=== PATIENT | female | born 1975 | race Caucasian/White ===

== ENCOUNTER → 2016-09-10 | Outpatient (CLI) | payer OTHER ==
--- NOTE | 2016-09-10 16:58 | MA ---
Screening Digital Mammogram With Tomosynthesis Clinical Indications: Routine screening. Sr. With breast cancer at age 24. Aunt with breast cancer at age 40? Technique: Standard digital cephalocaudal and tomosynthesis mediolateral oblique projections were ob tained. An additional digital cc view is performed of the left breast. The digital images were proce ssed by the iCAD computer aided detection system. Comparison: August 2015, August 2014, January 2013 and October 2011 Breast density: D; The breast tissue is extremely dense. This may lower the sensitivity of mammograph y. Findings: CAD was reviewed. No suspicious findings are identified. Impression: Negative mammogram. BI-RADS 1. Recommendation: Routine screening is recommended in one year, as long as physical examination is raghav ign in this patient with moderately dense breast parenchyma. In light of the patient's dense breast p arenchyma and strongly positive family history for breast cancer, she may be good candidate for husam ic counseling. She should also consider using breast MRI or screening whole breast ultrasound) as a complement to annual screening mammography. [facility] will send a result letter to the patient. Negative mammography should not preclude additional workup of a clinically suspicious finding. The patient's information is entered into a reminder system with a target due date for her next mammo gram.
== END ==
LOC: FIMAGING 09:24
DX: Z12.31 Encounter for screening mammogram for malignant neoplasm of breast (principal); Z80.3 Family history of malignant neoplasm of breast
CPT/HCPCS: G0202

== ENCOUNTER → 2017-09-14 | Outpatient (CLI) | payer OTHER | LOC: FIMAGING 10:55 | PROVIDERS: ATTEND Obstetrics & Gynecology | DX: Z12.31 Encounter for screening mammogram for malignant neoplasm of breast (principal); Z80.3 Family history of malignant neoplasm of breast ==

== ENCOUNTER → 2019-01-19 | Outpatient (CLI) | payer OTHER | LOC: FIMAGING 14:04 ==

== ENCOUNTER → 2019-02-09 | Outpatient (CLI) | payer OTHER | LOC: FIMAGING 13:33 ==